=== PATIENT | female | born 1995 ===

== ENCOUNTER 2021-06-14 11:15 | Inpatient (IN) | payer OTHER ==
[~2021-06-14 11:15] MED LIST: DEXTROSE 5%-LACTATED RINGERS 500 ML IV ONE
[2021-06-14] MEDS ORDERED: DEXTROSE 5%-LACTATED RINGERS 1,000 ML IV ONE (12:15)
[2021-06-14] MEDS ORDERED: BUTORPHANOL TARTRATE 2 MG/ML VIAL IVPB PRN (12:28)
[2021-06-14] MEDS ORDERED: PROMETHAZINE HCL 25 MG/1 ML VIAL IVPB ONE (12:28)
[2021-06-14] MEDS ORDERED: DINOPROSTONE 10 MG VAGINAL SUPPOSITORY VG ONE (12:59)
[2021-06-14] MEDS: ACETAMINOPHEN 1000 MG/100 ML BAG IVPB PRN ×2 (13:10→21:20)
[2021-06-14] MEDS ORDERED: ACETAMINOPHEN INJECTION 100 ML IVPB ONE ×2 (13:10→21:23)
[2021-06-14 13:44] VITALS: BMI 24.7
[2021-06-14] MEDS: ELECTROLYTE-148 SOLN 1,000 ML IV SCH ×2 (14:15→20:00)
[2021-06-14 15:39] LABS: PH,URINE 6.5 (5.0-8.0); URINE APPEARANCE CLEAR; URINE BILIRUBIN NEGATIVE (NEGATIVE); URINE COLOR DK YELLOW; URINE GLUCOSE (UA) NEGATIVE (NEGATIVE); URINE KETONE 1+ (NEGATIVE); URINE LEUK ESTERASE NEGATIVE (NEGATIVE); URINE NITRITE NEGATIVE (NEGATIVE); URINE PROTEIN TRACE (NEGATIVE)
[2021-06-14 15:55] LABS: COCAINE, UR NEGATIVE (NEGATIVE); OPIATES, URI NEGATIVE (NEGATIVE); PHENCYCLIDINE,URINE NEGATIVE (NEGATIVE); URINE BARBITURATES NEGATIVE (NEGATIVE)
[2021-06-14 15:56] LABS: METHADONE, UR NEGATIVE (NEGATIVE); URINE BENZODIAZEPINES NEGATIVE (NEGATIVE)
[2021-06-14 16:03] LABS: URINE AMPHETAMINES NEGATIVE (NEGATIVE)
[2021-06-14 16:32] LABS: HEMATOCRIT 24.7 % (32.4-45.2); HEMOGLOBIN 8.3 GM/dL (10.7-15.3); MCH 26.2 pg (25.7-33.7); MCHC 33.5 g/dl (32.0-36.0); MEAN PLT VOLUME 9.8 fl (7.5-11.1); PLATELET COUNT 193 10^3/uL (134-434); RBC 3.17 M/mm3 (3.60-5.2); RDW 16.6 % (11.6-15.6); WHITE BLOOD COUNT 6.6 K/mm3 (4.0-10.0)
[2021-06-14 16:34] LABS: ACTIVATED PTT 27.1 SECONDS (25.2-36.5)
[2021-06-14 16:37] LABS: INR 1.09 (0.83-1.09); PROTHROMBIN TIME (PATIENT) 12.2 SEC (9.7-13.0)
[2021-06-14 16:46] LABS: CALCIUM 8.4 mg/dL (8.5-10.1)
[2021-06-14 16:47] LABS: ALBUMIN 2.2 g/dl (3.4-5.0); BLOOD UREA NITROGEN 5.3 mg/dL (7-18)
[2021-06-14 16:49] LABS: URIC ACID 2.7 mg/dL (2.6-7.2)
[2021-06-14 16:50] LABS: CREATININE 0.5 mg/dL (0.55-1.3)
[2021-06-14 16:51] LABS: BILIRUBIN,TOTAL 0.4 mg/dL (0.2-1); TOT PROT 5.8 g/dl (6.4-8.2)
[2021-06-14 17:41] LABS: HIV INTERPRETATION NEGATIVE (NEGATIVE)
[2021-06-14 18:47] LABS: ANISOCYTOSIS 1+; MACROCYTOSIS 1+; PLATELET ESTIMATE NORMAL
[2021-06-14] MEDS: DEXTROSE 5%-LACTATED RINGERS 1,000 ML IV SCH (19:01)
[2021-06-15] MEDS: DEXTROSE 5%-LACTATED RINGERS 1,000 ML IV SCH (02:00)
[2021-06-15] MEDS ORDERED: OXYTOCIN 30 UNITS in 0.9% NS 30 UNIT/500 ML INFUS.BAG IVPB SCH (07:30)
[2021-06-15] MEDS ORDERED: OXYTOCIN 30 UNITS in 0.9% NS 30 UNIT/500 ML INFUS.BAG IVPB ONE (07:35)
[2021-06-15] MEDS: ELECTROLYTE-148 SOLN 1,000 ML IV SCH ×2 (12:45→21:10)
[2021-06-15] MEDS ORDERED: PCA PUMP NR ONE (21:20)
[2021-06-15] MEDS ORDERED: FENTANYL/BUPIVACAINE/NS/PF - PCEA - 50 ML DISP.SYRIN EP ONE (21:20)
[2021-06-15] MEDS ORDERED: NALOXONE HCL 0.4 MG/ML VIAL IVPUSH PRN (21:52)
[2021-06-15] MEDS ORDERED: FENTANYL/BUPIVACAINE/NS/PF - PCEA - 50 ML DISP.SYRIN EP SCH (22:00)
[2021-06-15] MEDS ORDERED: OXYTOCIN 20 UNITS in 0.9% NS 20 UNIT/1,000 ML INFUS.BAG IV ONE (23:56)
[2021-06-16] MEDS ORDERED: ACETAMINOPHEN 325 MG TABLET (FP) PO PRN (02:40)
[2021-06-16] MEDS ORDERED: BENZOCAINE 28 GM HEMORRHOIDAL OINTMENT TP PRN (02:40)
[2021-06-16] MEDS ORDERED: METHYLERGONOVINE MALEATE 0.2 MG/1 ML AMP IM PRN (02:40)
[2021-06-16] MEDS ORDERED: WITCH HAZEL 50% (TUCKS) 40 PAD/JAR PAD TP PRN (02:40)
[2021-06-16] MEDS ORDERED: BISACODYL 10 MG SUPP.RECT RC PRN (02:40)
[2021-06-16] MEDS ORDERED: BENZOCAINE 20% 57 GM BOTTLE TP PRN (02:40)
[2021-06-16] MEDS ORDERED: ZOLPIDEM TARTRATE 5 MG TABLET PO PRN (02:42)
[2021-06-16] MEDS ORDERED: OXYTOCIN 20 UNITS in 0.9% NS 20 UNIT/1,000 ML INFUS.BAG IV SCH (02:45)
[2021-06-16 05:45] LABS: CORD HCO3 18.6 mmHg (20-29); CORD PCO2 37.9 mmHg (30-78); CORD pH 7.309 (7.14-7.44)
[2021-06-16] MEDS: IBUPROFEN 600 MG TABLET (FP) PO PRN ×2 (08:45→17:54)
[2021-06-16] MEDS: FERROUS SO4 325 MG TABLET (FP) PO SCH ×3 (08:45→17:54)
[2021-06-16] MEDS: PRENATAL VITAMINS W/ FOLIC ACID TABLET (FP) PO SCH (10:00)
[2021-06-17] MEDS: IBUPROFEN 600 MG TABLET (FP) PO PRN ×4 (03:04→21:28)
[2021-06-17 08:57] LABS: BASO % 0.3 % (0-2.0); EOS % 0.3 % (0-4.5); HEMOGLOBIN 8.7 GM/dL (10.7-15.3); LYMPH % 22.7 % (8-40); MCHC 33.4 g/dl (32.0-36.0); MEAN CELL VOLUME 77.8 fl (80-96); MEAN PLT VOLUME 8.6 fl (7.5-11.1); MONO % 6.6 % (3.8-10.2); NEUT % 70.1 % (42.8-82.8); PLATELET COUNT 179 10^3/uL (134-434); RBC 3.34 M/mm3 (3.60-5.2); RDW 16.7 % (11.6-15.6); WHITE BLOOD COUNT 10.1 K/mm3 (4.0-10.0)
[2021-06-17] MEDS: FERROUS SO4 325 MG TABLET (FP) PO SCH ×3 (09:39→18:01)
[2021-06-17] MEDS: PRENATAL VITAMINS W/ FOLIC ACID TABLET (FP) PO SCH (09:39)
[2021-06-17] MEDS: SENNOSIDES/DOCUSATE COMBO (SENNA PLUS) TABLET (UD) PO PRN (21:29)
[2021-06-18] MEDS: FERROUS SO4 325 MG TABLET (FP) PO SCH ×3 (08:51→16:52)
[2021-06-18] MEDS: PRENATAL VITAMINS W/ FOLIC ACID TABLET (FP) PO SCH (10:05)
[2021-06-18 13:32] LABS: BASO % 0.4 % (0-2.0); EOS % 0.4 % (0-4.5); LYMPH % 19.9 % (8-40); MONO % 6.6 % (3.8-10.2); NEUT % 72.7 % (42.8-82.8)
[2021-06-18 14:02] LABS: HEMATOCRIT 26.8 % (32.4-45.2); HEMOGLOBIN 8.7 GM/dL (10.7-15.3); MCH 25.6 pg (25.7-33.7); MCHC 32.5 g/dl (32.0-36.0); MEAN CELL VOLUME 78.9 fl (80-96); MEAN PLT VOLUME 9.8 fl (7.5-11.1); PLATELET COUNT 204 10^3/uL (134-434); RDW 16.8 % (11.6-15.6); WHITE BLOOD COUNT 8.2 K/mm3 (4.0-10.0)
[2021-06-18] MEDS: IBUPROFEN 600 MG TABLET (FP) PO PRN (20:22)
[2021-06-18] MEDS: SENNOSIDES/DOCUSATE COMBO (SENNA PLUS) TABLET (UD) PO PRN (20:28)
[2021-06-19] MEDS: FERROUS SO4 325 MG TABLET (FP) PO SCH ×2 (08:27→11:38)
[2021-06-19] MEDS: PRENATAL VITAMINS W/ FOLIC ACID TABLET (FP) PO SCH ×2 (08:27→10:07)
[2021-06-19] MEDS: IBUPROFEN 600 MG TABLET (FP) PO PRN (08:27)
[2021-06-19 08:38] VITALS: BP 106/68; PULSE 72; TEMP 98.6
== END 2021-06-19 15:05 | disposition home or self-care (01) | DRG 560 ==
LOC: JDEL 11:15 → JLDR 12:30 → J3W 06-16 08:20
PROVIDERS: ADMIT Obstetrics & Gynecology; ATTEND Obstetrics & Gynecology
PROC: 3E0P7VZ Introduction of Hormone into Female Reproductive, Via Natural or Artificial Opening (ICD-10-PCS; 2021-06-14)
PROC: 10D07Z6 Extraction of Products of Conception, Vacuum, Via Natural or Artificial Opening (ICD-10-PCS; principal; 2021-06-16)
DX: O48.0 Post-term pregnancy (principal); O63.1 Prolonged second stage (of labor); O40.3XX0 Polyhydramnios, third trimester, not applicable or unspecified; O98.513 Other viral diseases complicating pregnancy, third trimester; U07.1 COVID-19; O76 Abnormality in fetal heart rate and rhythm complicating labor and delivery; O75.81 Maternal exhaustion complicating labor and delivery; O70.0 First degree perineal laceration during delivery; Z3A.40 40 weeks gestation of pregnancy; Z37.0 Single live birth
CPT/HCPCS: 36415; 36600; 59409; 72170-TC-FY; 80053; 80307; 81003; 82803; 84550; 85025; 85610; 85730; 86780; 86850; 86900; 86901; 87340; 87389; 97116-GP; 97161-GP; C9803; J0131; U0003; U0005